=== PATIENT | male | born 1945 | race Caucasian/White ===

== ENCOUNTER 2017-03-23 08:59 | Observation (INO) | payer OTHER ==
[2017-03-23] VITALS (16 sets, daily range): BP systolic 115–146; BP diastolic 61–87
[~2017-03-23] VITALS: Ht 177.8 cm; Wt 112.0 kg
[~2017-03-23 08:59] MED LIST: ALBUTEROL2.5 MG/0.5 INH; ARTIFICIAL TEA1 EACH OP; BAYER CHEWABLE81 MG PO; CENTRUM SILVER1 EAC2 PO; COREG3.125 MG PO; FLOMAX0.4 MG PO; GABAPENTIN100 MG PO; HYDROCODONE-AP1 EAC6 PO; LASIX 40 MG TAB40 M2 PO; NITROGLYCERIN0.4 MG SUBLING; NOVOLOG100 UNIT/1 SUBQ; PLAVIX 75 MG TA75 M1 PO; POTASSIUM20 PO; SIMVASTATIN40 MG PO; TYLENOL325 MG PO; VITAMIN B-12500 MCG PO; XALATAN2.5 ML OPHTHALMIC
[2017-03-23] MEDS ORDERED: LASIX 40 MG TAB40 M2 (10:03)
[2017-03-23 10:14] LABS: HEMATOCRIT 40.9 % (42.0-52.0); HEMOGLOBIN 13.6 gm/dL (14.0-18.0); MCH 30.5 pg (26.0-34.0); MCHC 33.2 g/dL (28.0-37.0); MCV 91.8 fL (80.0-100.0); MPV 7.9 fl. (7.2-11.1); RBC 4.45 mil/uL (4.50-6.00); RDW-CV 12.7 % (10.5-14.5); WBC 11.2 thou/uL (4.0-11.0)
[2017-03-23 10:20] LABS: ANION GAP 9 mmol/L (7-16); BUN 38 mg/dL (7-18); CALCIUM 9.1 mg/dL (8.5-10.1); CHLORIDE 106 mmol/L (98-107); CO2 25 mmol/L (21-32); CREATININE 2.2 mg/dL (0.6-1.3); GLUCOSE 250 mg/dL (70-99); SODIUM 140 mmol/L (136-145)
[2017-03-23 10:22] LABS: PROTIME 10.2 Seconds (9.20-11.50)
[2017-03-23 10:25] LABS: ALBUMIN 3.7 g/dL (3.4-5.0); ALKALINE PHOSPHATASE 64 U/L (46-116); CHOLESTEROL 156 mg/dL (<200); HDL CHOLESTEROL 68 mg/dL (>40); LDL CHOLESTEROL 84 mg/dL (<100); SERUM ASSESSMENT Clear; SGOT 18 U/L (15-37); SGPT 22 U/L (30-65); TC:HDL 2.3 Ratio (Not establshd); TOTAL BILIRUBIN 0.5 mg/dL (<0.1-1.0); TOTAL PROTEIN 7.1 g/dL (6.4-8.2); TRIGLYCERIDE 22 mg/dL (<150); VLDL 4 mg/dL (<40)
--- NOTE | 2017-03-23 10:28 | EKG ---
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1945 Requested By: Brandin Foster Order Number: [id number] Rogerio MD: Brandin Foster Measurements Intervals [place] Rate: 81 P: 61 IN: 156 QRS: -20 QRSD: 102 T: 118 QT: 405 QTc: 470 Interpretive Statements Sinus rhythm Borderline left axis deviation Abnormal T, consider ischemia, lateral leads Baseline wander in lead(s) V2 Compared to ECG 07/01/2014 15:38:29 no change Electronically Signed On 03-23-2017 10:28:21 MIGRATION AGENT by Brandin Foster [email or web address] <ELECTRONICALLY SIGNED> By: Brandin Foster MD, [facility] 03/23/17 1028 0958 0958 Brandin Foster MD, [facility] /EPI
[2017-03-23] MEDS ORDERED: TRAZODONE HCL100 MG PO (10:57)
[2017-03-23] MEDS ORDERED: CILOSTAZOL 100100 MG PO (10:58)
[2017-03-23] MEDS ORDERED: COZAAR 25 MG TA25 M1 PO (10:59)
[2017-03-23] MEDS ORDERED: GLIPIZIDE 10 MG10 MG PO (11:00)
[2017-03-23] MEDS ORDERED: DORZOLAMIDE HCL10 ML INTRAOCULR (11:02)
[2017-03-23] MEDS ORDERED: LANTUSSOLASTAR SUBQ (11:04)
--- NOTE | 2017-03-23 14:48 | CARD ---
[address] [address] CARDIAC CATH REPORT Name: PEMBERTONRAKAN Alicia Room: [address] IN .R.#: [id number] Admission: 03/23/17 Attend Phys: Brandin Foster MD, F Discharge: Date of : 43 Report #: [id number] THIS REPORT FOR: //name// APPROVED REPORT Patient Details Patient Status: Out-Patient Room #: The patient is a 72 year-old male Event Personnel Brandin Foster Political Science Instructor, Adriane Mora RN RN, Twyla Colon RTR Monitor, Pancho Tariq Scrub Procedures Performed BOB Place w/wo Plasty Single RCA, Left Heart Cath Coronaries, Bypass Grafts Indication Dyspnea, Positive stress test Risk Factors Coronary Artery Disease, Diabetes Previous Procedures/Diagnoses Previous CABGPrevious PCI Admission/Lab Medications/Medications given during procedure Heparin Unfract. Procedure Narrative The patient was brought electively to the Cardiac Catheterization Laboratory and was prepped and draped in a sterile manner. The right femoral was infiltrated with 1% Lidocaine subcutaneous anesthesia. A 6fr Ultimum Sheath sheath was inserted into the Right Femoral Artery. Coronary angiography was performed using coronary diagnostic catheters. The right coronary system was accessed and visualized with a Diagnostic catheter. The left coronary system was accessed and visualized with a Diagnostic catheter. The left ventricle was accessed and visualized with a Diagnostic catheter. Left ventricular/Aortic Valve gradient assessed via catheter pullback. Closure device was deployed with a 6 Fr MynxGrip 6/7F. The patient tolerated the procedure well and there were no complications associated with the procedure. There was no hematoma. SVG to the rca was visualized with a multipurpose catheter. MIR graft was visualized [place] [address] CARDIAC CATH REPORT Name: RAKAN PEMBERTON V Room: [address]#: [id number] Admission: 03/23/17 Attend Phys: Brandin Foster MD, F Discharge: Date of : 43 Report #: [id number] Intraoperative Conscious Sedation Fentanyl 50 mcg Fluoro Time: 13.4 minutes Dose: DAP 279944 cGycm2 3000 mGy Contrast Type and Amount: Visipaque 250 ml Coronary Angiography The patient's coronary anatomy is right dominant. [place]ek Artery Percent Stenosis Grafts (Complete if Previous CABG=Yes: Percent Stenosis) Patent mir graft to the lad. 60% stenosis noted in mid lad beyond the graft. SVG to circumflex appeared to be chronically occluded. SVG to PDA of RCA without restenosis, but the PDA had a mid 90% stenosis beyond the graft Diagnostic Cath Left Main 0% stenosis LAD 90% proximal stenosis and competitive flow from mir graft Diagonal 1 small vessel had a 90% proximal stenosis Circumflex 90% proximal stenosis and occluded after a small first marginal branch Right Coronary Stent noted in mid rca without restenosis, and a 50% stenosis noted at acute margin of rca. PDA branch appeared to be occluded. Left Ventriculography Left Ventriculography was not performed. Hemodynamics The aortic pressure is 141/79 mmHg with a mean of 99 mmHg. The left ventricular pressure is 152/13 mmHg with a mean of mmHg. The left ventricular end diastolic pressure is 24 mmHg. There was no gradient across the aortic valve upon pullback. Pullback from the left ventricle to the aorta revealed no gradient across the aortic valve. PCI Technique Lesion Anticoagulation was achieved with Heparin. pt had been on asa and plavix chronically Patient was preloaded with Heparin IV 5000 units. Percutaneous coronary intervention was performed on the right posterior descending artery. The lesion stenosis prior to intervention was 90% with JEM 3 flow. A 6F MPA 1 [place] [address] CARDIAC CATH REPORT Name: RAKAN PEMBERTON V Room: [address] IN [facility]#: [id number] Admission: 03/23/17 Attend Phys: Brandin Foster MD, F Discharge: Date of : 43 Report #: [id number] used to engage the svg ostium. A IG: BMW 190cm Interventional Guidewire was used to cross the lesion. BALLOON DILATION A Balloon catheter Mini Trek RX 2.0 X 8 was inserted and inflated up to 12.00atm for 17seconds. Repeat angiography revealed the following post-dilatation results: 60% stenosis. Additional Inflation: 8.00atm for 7seconds. Additional Inflation: 8.00atm for 11seconds. STENT DEPLOYMENT A drug-eluting stent Xience Alpine RX 2.25X12 was inserted and inflated up to 12.00atm for 10seconds. Repeat angiography revealed the following post-stent deployment results: 60% stenosis. Additional Inflation: 12.00atm for 6seconds. Additional Inflation: 15.00atm for 12seconds. POST STENT DEPLOYMENT BALLOON DILATION A Balloon catheter NC Trek RX 2.25 X 8 was inserted and inflated up to 12.00atm for 13seconds. Repeat angiography revealed the following post-dilatation results: 0% stenosis. Additional Inflation: 16.00atm for 14seconds. Final angiography reveals 0 % stenosis with JEM 3 flow. Conclusion 1. Subtotal occlusion of the lad, and chronic occlusion of the yurok circumflex. 2. patent mir graft to the lad 3. patent stent in the mid rca 4. patent svg to the pda although there was a 90% stenosis in the pda 5. chronic occlusion of the svg to the circumflex 6. successful drug eluting stent placed through the svg to the pda branch of the rca Recommendations Cardiac Rehabilitation Referral Aggressive Medical Therapy <ELECTRONICALLY SIGNED> By: Brandin Foster MD, [facility] 03/23/17 1448 1448 1448Brandin Foster MD, [facility] /INF
--- NOTE | 2017-03-23 15:00 | EKG ---
[place] [address] ELECTROCARDIOGRAM REPORT Name: RAKAN PEMBERTON V Room: [address] ADM IN [facility].#: [id number] Admission: 03/23/17 Attend Phys: Brandin Foster MD, F Discharge: Date of : 43 Report #: [id number] THIS REPORT FOR: //name// [facility] Test Date: 2017-03-23 Test Time: 13:28:24 Pat Name: RAKAN PEMBERTON Department: Room: 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25 : 1945 Requested By: Brandin Foster Order Number: [id number] Rogerio MD: Brandin Foster Measurements Intervals [place] Rate: 84 P: 60 PA: 166 QRS: -24 QRSD: 103 T: 130 QT: 395 QTc: 467 Interpretive Statements Sinus rhythm Borderline left axis deviation Repol abnrm suggests ischemia, lateral leads Compared to ECG 03/23/2017 09:58:20 Possible ischemia still present Electronically Signed On 03-23-2017 14:59:59 SEWING TRIMMER by Brandin Foster [email or web address] <ELECTRONICALLY SIGNED> By: Brandin Foster MD, [facility] 03/23/17 1459 1328 1328 Brandin Foster MD, [facility] /EPI
[2017-03-24 04:29] VITALS: BP 99/59
[2017-03-24 05:16] LABS: HEMATOCRIT 39.3 % (42.0-52.0); HEMOGLOBIN 12.9 gm/dL (14.0-18.0); MCH 30.5 pg (26.0-34.0); MCHC 32.9 g/dL (28.0-37.0); MCV 92.8 fL (80.0-100.0); MPV 7.8 fl. (7.2-11.1); RBC 4.24 mil/uL (4.50-6.00); WBC 15.6 thou/uL (4.0-11.0)
[2017-03-24 05:36] LABS: CALCIUM 8.2 mg/dL (8.5-10.1); CREATININE 2.6 mg/dL (0.6-1.3); POTASSIUM 5.5 mmol/L (3.5-5.1); TROPONIN-I LEVEL 0.3 ng/mL (<0.06)
[2017-03-24 08:26] VITALS: BP 139/72
[2017-03-24 09:00] VITALS: BP 117/68
--- NOTE | 2017-03-24 12:38 | EKG ---
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 : 1945 Requested By: Brandin Foster Order Number: [id number] Rogerio MD: Brandin Foster Measurements Intervals [place] Rate: 100 P: 73 GA: 159 QRS: -47 QRSD: 104 T: 118 QT: 365 QTc: 471 Interpretive Statements Sinus tachycardia LAD, consider left anterior fascicular block Low voltage, extremity leads Abnormal T, consider ischemia, lateral leads Compared to ECG 03/23/2017 13:28:24 Low QRS voltage now present Sinus rhythm no longer present Possible ischemia still present Electronically Signed On 03-24-2017 12:38:44 PARAFFINER by Brandin Foster [email or web address] <ELECTRONICALLY SIGNED> By: Brandin Foster MD, FACC 03/24/17 1238 01 01 Brandin Foster MD, FAC /EPI
--- NOTE | 2017-03-24 12:42 | EKG ---
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 : 1945 Requested By: Brandin Foster Order Number: [id number] Rogerio MD: Brandin Foster Measurements Intervals [place] Rate: 72 P: 45 [place]: 148 QRS: -10 QRSD: 93 T: 135 QT: 436 QTc: 478 Interpretive Statements Sinus rhythm Abnormal T, consider ischemia, lateral leads Compared to ECG 03/23/2017 13:28:24 T-wave abnormality now present rate slowed Possible ischemia still present Electronically Signed On 03-24-2017 12:42:33 BULKHEAD CARPENTER by Brandin Foster [email or web address] <ELECTRONICALLY SIGNED> By: Brandin Foster MD, [facility] 03/24/17 1242 0806 0806 Brandin Foster MD, [facility] /EPI
[2017-03-24 14:00] VITALS: BP 139/72
--- NOTE | 2017-03-25 12:41 | SHORT ---
[address] [address] SHORT STAY SUMMARY Name: NILAYRAKAN Alicia Room: [address] Uri Walker#: [id number] Admission: 03/23/17 Attend Phys: Brandin Foster MD, F Discharge: 03/24/17 Date of : 43 Report #: [id number] THIS REPORT FOR: //name// CC: Trell Foster DATE OF SERVICE: 03/24/2017 DISCHARGE DIAGNOSES: 1. Coronary artery disease. 2. Ischemic cardiomyopathy. 3. Sleep apnea. 4. Diabetes. 5. Hyperlipidemia. 6. Chronic kidney disease. CONSULTANTS: None. PROCEDURES: Left heart catheterization with placement of a single drug-eluting stent through a vein graft to the distal right coronary artery and placement in the posterior descending branch beyond the vein graft PRIMARY CARE PHYSICIAN: Trell Garcia in [place], [place]. HISTORY OF PRESENT ILLNESS: The patient is a 72-year-old white male who was brought to the outpatient department to undergo repeat cardiac catheterization. The patient apparently had coronary artery bypass surgery at [facility] in 2010. He has been followed by my partner, Dr. Phillips. He presented in 06/2014 with shortness of breath and chest tightness. He had an abnormal nuclear stress test. Ejection fraction was only 21%. I performed repeat cardiac catheterization on 06/01/2014. No ventriculogram was performed because of renal insufficiency. There is a 70% narrowing of the mid LAD. The circumflex was chronically occluded. The right coronary had mid 90% stenosis. The vein graft to the circumflex appeared to be chronically occluded. A second vein graft went to the posterior descending branch of the distal right coronary artery and beyond the insertion of the vein graft, there was a 90% stenosis in the posterior descending branch. There was a patent MIR graft to the LAD. I then placed a single drug-eluting stent in the [place] right coronary artery. He has done fairly well since that time. Recently, the patient complained of exertional dyspnea, but no significant edema. He has been waking up at night with short of breath. He had occasional cough. He actually denied significant chest pain. He saw Dr. Phillips on 02/08/2017. The patient underwent a nuclear stress test. Resting images showed a lateral defect as well as an inferior defect. Following stress, the defects became more prominent consistent with periinfarct ischemia, ejection fraction 25%. Because [place] [address] SHORT STAY SUMMARY Name: PEMBERTONRAKAN Alicia Room: [address]#: [id number] Admission: 03/23/17 Attend Phys: Brandin Foster MD, F Discharge: 03/24/17 Date of : 43 Report #: [id number] Cardiolite, Dr. Phillpis recommended repeat cardiac catheterization. The patient did have an echocardiogram done on 03/21/2017 that showed ejection fraction of only 30%, left ventricular hypertrophy, moderate mitral regurgitation. PAST MEDICAL HISTORY: Cholecystectomy, cataract extraction, hypertension, diabetes, hyperlipidemia, sleep apnea, chronic kidney disease. MEDICATIONS: Consists of aspirin, carvedilol, Pletal, Plavix, aspirin, Neurontin, glipizide, insulin, Zocor, Flomax, losartan, trazodone. ALLERGIES: He has a previous contrast allergy. PHYSICAL EXAMINATION: GENERAL: Elderly male. VITAL SIGNS: Blood pressure 120/70, pulse 60. CHEST: Revealed decreased breath sounds at the bases. CARDIOVASCULAR: Regular rate and grade 3 holosystolic murmur at the apex. ABDOMEN: Obese. EXTREMITIES: Had no pitting edema. Chest x-ray showed atelectasis. LABORATORY DATA: Sodium 134, BUN 38, creatinine 2.2, glucose 246. Liver function studies were normal. His cholesterol was 156, triglyceride 22, HDL 68, LDL 84. White blood cell count 15.6, hemoglobin 13.6. HOSPITAL COURSE: The patient was brought to the cardiac catheterization lab. I performed left heart catheterization from the right femoral artery. Results: No ventriculogram was performed because of his chronic kidney disease. The LAD was noted to have high-grade proximal stenosis. The LAD filled by a MIR graft. There was a small first diagonal branch, had a proximal 90% stenosis. Beyond the MIR graft, there was a 60% narrowing in the distal LAD. The circumflex had a proximal 90% stenosis and then gave off a small marginal branch. The main circumflex then appeared to be chronically occluded. The right coronary artery had a stent in the mid portion with no restenosis. Distally, it gave off a posterolateral branch. The posterior descending branch appeared to be occluded off the [place] right coronary artery. However, there was a patent vein graft to the posterior descending branch. This vein graft had no restenosis, although there was a 90% stenosis in the posterior descending artery. The vein graft of the circumflex was chronically occluded, although the MIR graft appeared widely patent. He was given heparin. I then placed a single drug-eluting stent through the vein graft to the distal right coronary artery and was placed in the posterior descending branch. He tolerated this well. A Mynx closure device was placed. Later that evening, the patient did develop a small hematoma and required additional compressions of his right groin. After bed rest, however, the patient was able to ambulate. He did have a Avendñao in place [place] [address] SHORT STAY SUMMARY Name: RAKAN PEMBERTON V Room: [address] Uri Walker#: [id number] Admission: 03/23/17 Attend Phys: Brandin Foster MD, F Discharge: 03/24/17 Date of : 41 Report #: [id number] bed rest. At the time of discharge, the patient had no significant chest pain. He developed no arrhythmias or heart failure. The patient was discharged to continue his home medications including albuterol inhaler as needed, aspirin 81 mg a day, carvedilol 3.125 mg twice a day, Pletal 100 mg twice day for PAD, clopidogrel 75 mg a day, which I would take indefinitely, Lasix 40 mg every other day for edema, Neurontin 100 mg a day for neuropathy, glipizide 10 mg a day for his diabetes, hydrocodone as needed for chronic pain. He is on insulin, eyedrops, losartan 25 mg a day, simvastatin which I recommended switching to Lipitor 40 mg a day since his LDL was noted to be 84 on simvastatin. He was to continue Flomax 0.4 mg a day and he does have nitroglycerin to take as needed for chest pain. The patient was found to have evidence of severe cardiomyopathy. However, he does not appear to be a very good candidate for a defibrillator because of his chronic comorbidities. However, I did recommend he discuss this with Dr. Phillips. The patient was discharged to return to care of Dr. Garcia for management of his diabetes. He will see Dr. Phillips in the cardiology clinic in [place] on 04/06/2017 for followup. His prognosis is guarded due to his ischemic cardiomyopathy. At the time of discharge, his ECG showed sinus rhythm with T-wave inversion that was unchanged from his preprocedure ECG. Followup creatinine was 2.6 and his hemoglobin was 12.9 after the procedure. <ELECTRONICALLY SIGNED> By: Brandin Foster MD, FACC 03/25/17 1241 0930 1046Davibrissa Foster MD, FACC /nt
--- NOTE | 2017-03-25 12:41 | H ---
[place] [address] HISTORY AND PHYSICAL Name: PEMBERTONRAKAN V Room: [address] Uri Walker#: [id number] Admission: 03/23/17 Attend Phys: Brandin Foster MD, F Discharge: 03/24/17 Date of : 41 Report #: [id number] THIS REPORT FOR: //name// CC: Trell Foster DATE OF SERVICE: 03/23/2017 HISTORY OF PRESENT ILLNESS: The patient is a 72-year-old white male who I was asked to see in preop area for consideration of cardiac catheterization. The history is obtained from the patient, family members as well as some old records. The patient had 5-vessel bypass surgery at [facility] in 2010. He has been followed by Dr. Phillips. He then presented in 06/2014 with shortness of breath. He also complained of occasional chest tightness. Nuclear stress test showed an inferolateral defect at rest. Following stress, there is an inferolateral defect with anterior ischemia. Ejection fraction only 21%. Dr. Phillisp recommended repeat cardiac catheterization performed on 06/01/2014. No ventriculogram was performed because of renal insufficiency. Left ventricular end diastolic pressure is elevated at 30. The circumflex was chronically occluded. There was a 70% narrowing of the mid LAD. The right coronary had 90% stenosis. The posterior descending branch is chronically occluded. The vein graft of the circumflex appeared to be chronically occluded. Second vein graft went to the posterior descending branch of the distal right coronary artery. Beyond the insertion, there was a 90% narrowing in the small posterior descending branch. There is a patent MIR graft to the LAD. He was then loaded with Plavix. I placed a single drug-eluting stent in the [place] right coronary artery. An Angio-Seal was placed. He was felt to have a patent MIR graft to the LAD. The vein graft to circumflex is occluded, although the [place] circumflex was occluded. The vein graft to the posterior descending branch was patent, although there is a 90% narrowing of the distal small posterior descending branch. This does not appear to be readily amenable to stenting. He had a high grade stenosis in the [place] right coronary artery that filled the posterolateral branch by stenting. The patient was sent home with Plavix. He was started on carvedilol. The patient was not given an JAYDA or ARB because of his chronic kidney disease. The patient recently complained of exertional dyspnea. He has had no significant edema. He wakes up at night short of breath. He denied any significant chest pain. He does have occasional cough. Dr. Phillips saw him in the clinic on 02/08. He recommended a nuclear stress test. Resting images showed a lateral defect as well as an inferior defect. Following stress, there was again a lateral defect, inferior defect. The defects are large on the post-stress images. There was moderate matt-infarct ischemia. Ejection fraction was only 25%. Because of abnormal Cardiolite, Dr. Phillips recommended a repeat cardiac catheterization. He has had a recent palpitations, syncope, [place] [address] HISTORY AND PHYSICAL Name: RAKAN PEMBERTON V Room: [address] Uri Walker#: [id number] Admission: 03/23/17 Attend Phys: Brandin Foster MD, F Discharge: 03/24/17 Date of : 41 Report #: [id number] PAST MEDICAL HISTORY: Otherwise significant for cholecystectomy. He has had cataract extraction. He has hypertension, diabetes, hyperlipidemia, sleep apnea, no longer uses CPAP, chronic kidney disease. CURRENT MEDICATIONS: Consist of nebulizer at home, aspirin, carvedilol, Pletal, Plavix, Lasix, Neurontin, glipizide, insulin, Zocor, Flomax, losartan, trazodone. ALLERGIES: HE HAS A PREVIOUS CONTRAST ALLERGY. FAMILY HISTORY: Positive for heart disease. SOCIAL HISTORY: He is . He and his live in [place], [place]. 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 He walks with a cane, has not smoked in years. No more alcohol use. REVIEW OF SYSTEMS: No history of stroke. He does have COPD. No history of peptic ulcer disease, bleeding. He does have chronic kidney disease, no cancer. No chronic skin condition. PHYSICAL EXAMINATION: GENERAL: Elderly obese white male. VITAL SIGNS: He had a blood pressure of 120/70, pulse 60. HEENT: He is anicteric. Conjunctivae pink. Mucous membranes appeared moist. NECK: Veins do not appear distended. No carotid bruits. CHEST: Revealed decreased breath sounds at bases. CARDIOVASCULAR: Regular rate and rhythm. Grade 3 systolic ejection murmur at left sternal border. ABDOMEN: Obese, soft, nontender. EXTREMITIES: Had no edema. Dorsalis pedis pulse could not be palpated. SKIN: Cool and dry. NEUROLOGIC: Nonfocal. He actually had a chest x-ray done 1 month ago that showed atelectasis, otherwise clear lung hughes. LABORATORY DATA: He had lab work done in January. Potassium is 4.1, creatinine 2.0, glucose 67. His BNP was 582. IMPRESSION AND RECOMMENDATIONS: 1. Coronary artery disease. Abnormal Cardiolite. Recommend repeat cardiac catheterization. 2. Cardiomyopathy. The patient has been on beta huyen, JAYDA inhibitor. I would not recommend spironolactone because of his chronic kidney disease. The patient has been on Lasix. 3. Sleep apnea. The [place] [address] HISTORY AND PHYSICAL Name: NILAYRAKAN Alicia Room: [address] Uri Walker#: [id number] Admission: 03/23/17 Attend Phys: Brandin Foster MD, F Discharge: 03/24/17 Date of : 41 Report #: [id number] 4. Diabetes. 5. Hyperlipidemia. The patient is on a statin drug. 6. Chronic kidney disease. The patient is followed by Nephrology. 7. Mitral regurgitation. Echocardiogram done this week showed ejection fraction 30% with moderate mitral regurgitation. <ELECTRONICALLY SIGNED> By: Brandin Foster MD, FACC 03/25/17 1241 1003 [id number] Foster MD, FACC /nt
== END 2017-03-24 14:38 | disposition home or self-care (01) ==
LOC: M.CL 08:59 → M.TBA-CV 12:51 → M.CL 12:51 → M.TBA-CV 12:54 → M.2W 12:54
PROVIDERS: ADMIT Internal Medicine Cardiovascular Disease
DX: I25.10 Atherosclerotic heart disease of native coronary artery without angina pectoris (principal); I25.5 Ischemic cardiomyopathy; E78.5 Hyperlipidemia, unspecified; I34.0 Nonrheumatic mitral (valve) insufficiency; E11.22 Type 2 diabetes mellitus with diabetic chronic kidney disease; I13.0 Hypertensive heart and chronic kidney disease with heart failure and stage 1 through stage 4 chronic kidney disease, or unspecified chronic kidney disease; N18.9 Chronic kidney disease, unspecified; I50.43 Acute on chronic combined systolic (congestive) and diastolic (congestive) heart failure; J44.9 Chronic obstructive pulmonary disease, unspecified; E78.00 Pure hypercholesterolemia, unspecified; E11.40 Type 2 diabetes mellitus with diabetic neuropathy, unspecified; G47.33 Obstructive sleep apnea (adult) (pediatric); Z87.891 Personal history of nicotine dependence; Z79.4 Long term (current) use of insulin; Z82.49 Family history of ischemic heart disease and other diseases of the circulatory system